=== PATIENT | female | born 1960 | race Caucasian/White ===

== ENCOUNTER 2022-12-06 15:10 | Observation (INO) ==
[2022-12-06] MEDS ORDERED: SODIUM CHLORIDE 0.9% 500 ML IV STA (15:15)
[2022-12-06] MEDS ORDERED: SODIUM CHLORIDE 0.9% 1000ML 1,000 ML IV ONE (16:03)
[2022-12-06] MEDS ORDERED: MoRPHine SULFATE 10 MG/ML CARP/VIAL IV STA ×2 (16:03→17:19)
[2022-12-06] MEDS ORDERED: ONDANSETRON INJ 2 MG/ML 2 ML VIAL IV STA (16:03)
[2022-12-06] MEDS ORDERED: KETOROLAC TROMETHAMINE 15 MG/ML VIAL IV STA (16:03)
[2022-12-06 16:07] LABS: Basophils # (auto) 0.02 K/uL (0-0.2); Basophils % (auto) 0.2 %; Eosinophils # (auto) 0.03 K/uL (0-0.50); Eosinophils % (auto) 0.2 %; Hematocrit (blood only) 38.8 % (37.0-47.0); Hemoglobin 13.5 g/dl (12.0-16.0); Immature Granulocytes # (auto) 0.04 K/uL (0.01-0.20); Immature Granulocytes % (auto) 0.3 %; Lymphocytes # (auto) 1.22 K/uL (1.2-3.4); Lymphocytes % (auto) 9.7 %; Mean Corpuscular Hemoglobin 31.4 pg (25.0-34.0); Mean Corpuscular Hgb Conc 34.8 g/dL (32.0-36.0); Mean Corpuscular Volume 90.2 fL (80.0-100.0); Mean Platelet Volume 10.2 fL (9.4-12.4); Monocytes # (auto) 1.01 K/uL (0.11-0.59); Neutrophils # (auto) 10.31 K/uL (1.40-6.50); Neutrophils % (auto) 81.6 %; Platelet Count 326 K/uL (130-400); RDW Coefficient of Variation 12.7 % (11.5-14.5); RDW Standard Deviation 42.1 fL (36.4-46.3); White Blood Count 12.63 K/ul (4.8-10.8)
--- NOTE | 2022-12-06 16:14 | Emergency Department Note ---
Impression & Plan Acute left flank pain, Renal colic, DORINA (acute kidney injury), Vomiting ED Provider Note NAME: ERIN MCCAIN AGE: 62 SEX: F : 1960 ARRIVES VIA: Walk-In INFORMANT: [Patient] ED PROVIDER(S): [Jg Mcleod MD] CHIEF COMPLAINT: Kidney stone HISTORY OF PRESENT ILLNESS: The patient is a 62-year-old female presents to the ER with left flank and left- sided abdominal pain. The patient states that she started with some symptoms over the weekend and then Friday, 4 days ago, thought she passed a kidney stone. Despite this stone passage, she had increased pain on the left side, nausea and vomiting. The patient noticed some blood in her urine. No fever. No cough or cold or congestion. The patient went to [facility] outpatient medical care and was referred to the ER. She is currently rating her left flank pain as a 10/10. PMHx/PSHx: See Below SOCIAL HISTORY: See Below. PHYSICAL EXAM: GENERAL: Patient is in mild distress from pain. HEENT: No acute trauma, normocephalic atraumatic, mucous membranes moist, no nasal congestion. NECK: No stridor, no adenopathy, no meningismus, trachea is midline. LUNGS: Clear to auscultation bilaterally, no wheeze, no rhonchi, breath sounds equal. HEART: Without murmurs gallops or rubs, regular rate and rhythm. ABDOMEN: Soft, moderately tender in the left lower quadrant, no peritonitis EXTREMITIES: No cyanosis or edema, full range of motion of all the joints without pain or difficulty, no signs for acute trauma. NEUROLOGIC: Oriented x 3, no acute motor or sensory deficits, no focal weakness. SKIN: No rash, no jaundice, no diaphoresis. Back: Left flank discomfort to percussion. DIFFERENTIAL DIAGNOSIS: Renal colic, hydronephrosis, UTI, pyelonephritis, diverticulitis, dehydration, ovarian cyst, among others. EMERGENCY DEPARTMENT COURSE/PROCEDURES: Prior/Outside records reviewed: [facility] outpatient notation. MEDICAL DECISION MAKING: There is a mild leukocytosis, this could be consistent with infection or the stress of her situation. There is a normal hemoglobin and platelet count. There was an elevation to the creatinine consistent with some mild acute kidney injury. No electrolyte abnormality in need of emergent correction. There were some liver enzyme elevations noted, the bilirubin was normal. Urinalysis shows findings of hematuria, no infection. COVID test returned negative. Abdominal and pelvis CT shows a distal left ureteral stone at the UV junction. Hydronephrosis was seen proximal. On exam, patient was quite uncomfortable. The patient received IV morphine 6 mg, a second 6 mg dose was required. He received IV saline for hydration, 1.5 L. She received IV Zofran, IV Toradol. The patient is having persistent discomfort. She has required quite a bit of medication to control her symptoms. I do think a hospital stay would be warranted especially with the acute kidney injury noted on her laboratory testing. I spoke with the patient and case management, the on-call hospitalist was consulted. DISPOSITION: Patient's presentation and findings warrant a hospital stay. Past Med/Surg History Medical History Nephrolithiasis Surgical History H/O hemorrhoidectomy H/O sinus surgery Family History Denies family history of Ovarian cancer Prostate cancer Myocardial infarction Breast cancer Colorectal cancer Social History Smoking Status: Never smoker Second Hand Exposure: No; Do You Dip or Chew Tobacco: No; Hx Alcohol Use: Yes Hx Substance Use: No Preferred Language: Greenlandic Communication Ability: Effective Fire Investigation Lieutenant Required: No Beliefs That Will Affect Care: None marital status: Single Current Living Situation: Spouse current occupational status: retired How many Children do You have: 0 Other Information That Helps Us Care for You: No Feels Safe at Home: Yes Safety Concerns: Feels Safe At This Time Diet: regular caffeine: Yes Dental Care, Regularly: Yes Assistive Devices: Glasses Allergies Allergies Allergy/AdvReac Type Severity Reaction Status Date / Time Fish Containing Products Allergy Unknown Verified 12/06/22 20:24 Penicillins Allergy Unknown Verified 12/06/22 20:24 Home Meds Home Medications Medication Instructions Recorded Confirmed acetaminophen 500 mg tablet 1,000 mg PO Q6H PRN Pain 12/06/22 12/06/22 (Tylenol Extra Strength) [id number]-[id number]-pecaocms 250 1 tab PO Q6H PRN Pain 12/06/22 12/06/22 mg-250 mg-65 mg tablet (Excedrin Migraine) fluticasone propionate 50 1 spray intranasal DAILY PRN 12/06/22 12/06/22 mcg/actuation nasal allergies spray,suspension oxycodone-acetaminophen 5 mg-325 1 tab PO Q8 PRN Pain 12/06/22 12/06/22 mg tablet Results & Data (ED) Vital Signs Vital Signs - 24 hr 12/06/22 15:12 12/06/22 16:05 12/06/22 16:45 Temperature 36.8 C Temperature Source Temporal Artery Scan Pulse Rate 93 H 77 Pulse Rate [Apical] 67 Pulse Rhythm [Apical] Pulse Strength [Apical] Respiratory Rate 20 19 Respiratory Effort / Characteristics Non-Labored Spontaneous Respiratory Depth Normal Respiratory Pattern Blood Pressure 133/86 Blood Pressure [Left Arm] 150/90 H Blood Pressure Mean 101 Blood Pressure Mean [Left Arm] 110 Blood Pressure Position [Left Arm] Pulse Oximetry 99 86 L Oxygen Delivery Method Room Air Room Air Oxygen Flow Rate Sepsis Recent Fever Within 48 Hours No Sepsis New/Unexplained Change in Mental Status No Sepsis Action Taken by Nursing No Action Required 12/06/22 16:46 12/06/22 18:00 Temperature Temperature Source Pulse Rate Pulse Rate [Apical] 82 Pulse Rhythm [Apical] Regular Pulse Strength [Apical] Normal Respiratory Rate 20 Respiratory Effort / Characteristics Non-Labored Respiratory Depth Normal Respiratory Pattern Regular Blood Pressure Blood Pressure [Left Arm] 127/84 Blood Pressure Mean Blood Pressure Mean [Left Arm] 98 Blood Pressure Position [Left Arm] Sitting Pulse Oximetry 97 99 Oxygen Delivery Method Nasal Cannula Room Air Oxygen Flow Rate 3 Sepsis Recent Fever Within 48 Hours Sepsis New/Unexplained Change in Mental Status Sepsis Action Taken by Shelter Medications Current Medication List: was personally reviewed by me Laboratory Data Attestation: I reviewed the patient's lab results. 12/06/22 15:35 12/06/22 15:35 Lab Results 12/06/22 12/06/22 12/06/22 Range/Units 15:35 15:35 17:50 WBC 12.63 H (4.8-10.8) K/ul RBC 4.30 (4.20-5.40) M/uL Hgb 13.5 (12.0-16.0) g/dl Hct 38.8 (37.0-47.0) % MCV 90.2 (80.0-100.0) fL MCH 31.4 (25.0-34.0) pg MCHC 34.8 (32.0-36.0) g/dL RDW Std Deviation 42.1 (36.4-46.3) fL RDW Coeff of Vince 12.7 (11.5-14.5) % Plt Count 326 (130-400) K/uL MPV 10.2 (9.4-12.4) fL Immature Gran % (Auto) 0.3 % Neut % (Auto) 81.6 % Lymph % (Auto) 9.7 % Sac % (Auto) 8.0 % Eos % (Auto) 0.2 % Baso % (Auto) 0.2 % Neut # (Auto) 10.31 H (1.40-6.50) K/uL Lymph # (Auto) 1.22 (1.2-3.4) K/uL Sac # (Auto) 1.01 H (0.11-0.59) K/uL Eos # (Auto) 0.03 (0-0.50) K/uL Baso # (Auto) 0.02 (0-0.2) K/uL Immature Gran # (Auto) 0.04 (0.01-0.20) K/uL Sodium 137 (136-145) mmol/L Potassium 3.7 (3.5-5.1) mmol/L Chloride 102 (98-107) mmol/L Carbon Dioxide 23 (21-32) mmol/L Anion Gap 12 H (3-11) BUN 23 (6-23) mg/dl Creatinine 1.42 H (0.6-1.2) mg/dl Est Cr Clr Drug Dosing 48.9 ml/min Est GFR ( Amer) 46.1 ml/min Est GFR (Non-Af Amer) 39.8 ml/min BUN/Creatinine Ratio 16.2 (10-20) Glucose 116 H (70-99(Fasting)) mg/dl Calcium 9.4 (8.6-10.3) mg/dl Total Bilirubin 0.8 (0.2-1.0) mg/dl AST 48 H (13-39) U/L ALT 71 H (7-52) U/L Alkaline Phosphatase 119 H (34-104) U/L Total Protein 7.6 (6.0-8.3) gm/dl Albumin 3.8 (3.4-5.0) gm/dl Globulin 3.8 (2.5-4.0) gm/dl Albumin/Globulin Ratio 1.0 (0.9-2) Urine Color Yellow Urine Appearance Clear (Clear) Urine pH 6.5 (4.5-7.5) Ur Specific [place] 1.027 (1.000-1.030) Urine Protein 1+ H (Negative) Urine Glucose (UA) Negative (Negative) Urine Ketones 2+ H (Negative) Urine Blood 2+ H (Negative) Urine Nitrite Negative (Negative) Urine Bilirubin Negative (Negative) Urine Urobilinogen Negative (Negative) Ur Leukocyte Esterase Negative (Negative) Urine WBC (Auto) 1-5 (0-5) /hpf Urine RBC (Auto) >30 H (0-4) /hpf U Hyaline Cast (Auto) 1-5 (0-5) /lpf U Epithel Cells (Auto) >30 H (0-5) /lpf Urine Bacteria (Auto) Negative (Negative) SARS-CoV-2, RNA, NAAT (NEGATIVE) 12/06/22 Range/Units 19:40 WBC (4.8-10.8) K/ul RBC (4.20-5.40) M/uL Hgb (12.0-16.0) g/dl Hct (37.0-47.0) % MCV (80.0-100.0) fL MCH (25.0-34.0) pg MCHC (32.0-36.0) g/dL RDW Std Deviation (36.4-46.3) fL RDW Coeff of Vince (11.5-14.5) % Plt Count (130-400) K/uL MPV (9.4-12.4) fL Immature Gran % (Auto) % Neut % (Auto) % Lymph % (Auto) % Sac % (Auto) % Eos % (Auto) % Baso % (Auto) % Neut # (Auto) (1.40-6.50) K/uL Lymph # (Auto) (1.2-3.4) K/uL Sac # (Auto) (0.11-0.59) K/uL Eos # (Auto) (0-0.50) K/uL Baso # (Auto) (0-0.2) K/uL Immature Gran # (Auto) (0.01-0.20) K/uL Sodium (136-145) mmol/L Potassium (3.5-5.1) mmol/L Chloride (98-107) mmol/L Carbon Dioxide (21-32) mmol/L Anion Gap (3-11) BUN (6-23) mg/dl Creatinine (0.6-1.2) mg/dl Est Cr Clr Drug Dosing ml/min Est GFR ( Amer) ml/min Est GFR (Non-Af Amer) ml/min BUN/Creatinine Ratio (10-20) Glucose (70-99(Fasting)) mg/dl Calcium (8.6-10.3) mg/dl Total Bilirubin (0.2-1.0) mg/dl AST (13-39) U/L ALT (7-52) U/L Alkaline Phosphatase (34-104) U/L Total Protein (6.0-8.3) gm/dl Albumin (3.4-5.0) gm/dl Globulin (2.5-4.0) gm/dl Albumin/Globulin Ratio (0.9-2) Urine Color Urine Appearance (Clear) Urine pH (4.5-7.5) Ur Specific [place] (1.000-1.030) Urine Protein (Negative) Urine Glucose (UA) (Negative) Urine Ketones (Negative) Urine Blood (Negative) Urine Nitrite (Negative) Urine Bilirubin (Negative) Urine Urobilinogen (Negative) Ur Leukocyte Esterase (Negative) Urine WBC (Auto) (0-5) /hpf Urine RBC (Auto) (0-4) /hpf U Hyaline Cast (Auto) (0-5) /lpf U Epithel Cells (Auto) (0-5) /lpf Urine Bacteria (Auto) (Negative) SARS-CoV-2, RNA, NAAT NEGATIVE (NEGATIVE) Administered Medications Sodium Chloride (Nss 1000ml) 1,000 mls @ 80 mls/hr IV .[id number] ORTEGA Stop: 01/05/23 21:11 Last Admin: 12/06/22 21:27 Dose: 80 mls/hr Documented By: RKM Famotidine 20 mg/ Syringe 5 mls @ 2.5 mls/min IV Q12 ORTEGA Stop: 01/05/23 21:11 Last Admin: 12/06/22 22:03 Dose: 2.5 mls/min Documented By: KEVIN Ceftriaxone Sodium 2,000 mg/ (Dextrose) 70 mls @ 100 mls/hr IV Q24H ORTEGA; Protocol Stop: 12/16/22 21:59 Last Infusion: 12/06/22 22:45 Dose: 0 mls/hr Documented By: Admin: 12/06/22 22:03 Dose: 100 mls/hr Documented By: LY Discontinued Medications Sodium Chloride (Nss) 500 mls @ 999 mls/hr IV .Q31M STA Stop: 12/06/22 15:45 Last Infusion: 12/06/22 16:18 Dose: 0 mls/hr Documented By: Admin: 12/06/22 15:37 Dose: 999 mls/hr Documented By: NA Sodium Chloride (Nss 1000ml) 1,000 mls @ 999 mls/hr IV .Q1H1M ONE Stop: 12/06/22 17:03 Last Infusion: 12/06/22 17:37 Dose: 0 mls/hr Documented By: Admin: 12/06/22 16:36 Dose: 999 mls/hr Documented By: ML Ketorolac Tromethamine (Ketorolac Tromethamine 15 Mg/Ml Vial) 15 mg IV NOW STA Stop: 12/06/22 16:04 Last Admin: 12/06/22 16:36 Dose: 15 mg Documented By: ML Morphine Sulfate (Morphine Sulfate 10 Mg/Ml Carp/Vial) 6 mg IV NOW STA Stop: 12/06/22 16:04 Last Admin: 12/06/22 16:36 Dose: 6 mg Documented By: ML Morphine Sulfate (Morphine Sulfate 10 Mg/Ml Carp/Vial) 6 mg IV NOW STA Stop: 12/06/22 17:20 Last Admin: 12/06/22 18:05 Dose: 6 mg Documented By: LUI Ondansetron HCl (Ondansetron Inj 2 Mg/Ml 2 Ml Vial) 4 mg IV NOW STA Stop: 12/06/22 16:04 Last Admin: 12/06/22 16:36 Dose: 4 mg Documented By: ML Tamsulosin HCl (Tamsulosin Hcl 0.4 Mg Cap) 0.4 mg PO NOW ONE Stop: 12/06/22 21:13 Last Admin: 12/06/22 21:34 Dose: 0.4 mg Documented By: [facility] Imaging Data Radiologist's Impression: Abdomen/Pelvis CT 12/06/22 16:03 CT SCAN OF THE ABDOMEN AND PELVIS WITHOUT IV CONTRAST CLINICAL HISTORY: Left flank pain. COMPARISON STUDY: No priors. TECHNIQUE: CT scan of the abdomen and pelvis is performed from the lung bases to the proximal femora. Images are reviewed in the axial, sagittal, and coronal planes. IV contrast was not administered for this examination. A dose lowering technique was utilized adhering to the principles of ALARA. The examination is degraded by motion artifact. CT DOSE: 1537.05 mGy.cm FINDINGS: Lung bases: The heart is normal in size and without pericardial effusion. There are scattered coronary artery calcifications. The lung bases are clear noting dependent atelectasis. There is a small hiatal hernia. Liver: The unenhanced liver is normal in size, contour, and attenuation. There is no intrahepatic biliary ductal dilatation. Gallbladder: Unremarkable. Spleen: Normal in size and attenuation. Pancreas: Unremarkable. Adrenal glands: Unremarkable. Kidneys: The unenhanced kidneys are normal in size. There is a 4 mm obstructing calculus at the left vesicoureteral junction seen on image #339. This causes at least moderate left hydroureteronephrosis. There is left-sided perinephric stranding and fluid. There are at least 2 additional punctate nonobstructing left renal calculi. There are at least 2 small nonobstructing right renal calculi. There is no right ureteral stone or right-sided hydronephrosis. Renal sinus cysts are seen bilaterally. There is no evidence of contour deforming renal mass lesion. Abdominal vasculature: The abdominal aorta is normal in course and caliber noting mild atherosclerotic calcification. Bowel: There is no bowel obstruction. A small amount of enteric contrast is suggested within the small bowel. The appendix is well-visualized and normal. Peritoneum: There is no intraperitoneal free air or abdominal ascites. There is a fat-containing umbilical hernia. A navel piercing is in place. Lymphadenopathy: None. Pelvic viscera: The bladder, uterus, and adnexa are normal as visualized. Skeletal structures: No lytic or blastic lesions are seen. IMPRESSION: 1. There is a 4 mm obstructing calculus at the left vesicoureteral junction. This causes at least moderate left hydroureteronephrosis. 2. Additional bilateral tiny nonobstructing renal calculi as above. ACT 112: Negative or not required by law. Electronically signed by: Jg Rowe M.D. 12/06/2022 4:49 PM Discharge Plan Visit Data Chief Complaint: Kidney Stone Stated Complaint: KIDNEY STONE ED Provider: Jg Mcleod Discharge Problem: Acute left flank pain, Renal colic, DORINA (acute kidney injury), Vomiting Patient Disposition: Admitted As Inpatient Condition: Fair Discharge Instructions Interventions: ED Discharge Assessment Last Done: 12/06/22 20:54
[2022-12-06 16:20] LABS: Albumin Level 3.8 gm/dl (3.4-5.0); BUN Creatinine Ratio 16.2 (10-20); Bilirubin,Total 0.8 mg/dl (0.2-1.0); Calcium 9.4 mg/dl (8.6-10.3); Creatinine Clr Calc Pharmacy 48.9 ml/min; Est GFR (African American) 46.1 ml/min; Est GFR (Non-African American) 39.8 ml/min; Globulin 3.8 gm/dl (2.5-4.0); Potassium 3.7 mmol/L (3.5-5.1); Total Protein 7.6 gm/dl (6.0-8.3)
--- NOTE | 2022-12-06 16:51 | CT Scan Report ---
CT SCAN OF THE ABDOMEN AND PELVIS WITHOUT IV CONTRAST CLINICAL HISTORY: Left flank pain. COMPARISON STUDY: No priors. TECHNIQUE: CT scan of the abdomen and pelvis is performed from the lung bases to the proximal femora. Images are reviewed in the axial, sagittal, and coronal planes. IV contrast was not administered for this examination. A dose lowering technique was utilized adhering to the principles of ALARA. The ex amination is degraded by motion artifact. CT DOSE: 1537.05 mGy.cm FINDINGS: Lung bases: The heart is normal in size and without pericardial effusion. There are scattered coronar y artery calcifications. The lung bases are clear noting dependent atelectasis. There is a small hiat al hernia. Liver: The unenhanced liver is normal in size, contour, and attenuation. There is no intrahepatic guerrero iary ductal dilatation. Gallbladder: Unremarkable. Spleen: Normal in size and attenuation. Pancreas: Unremarkable. Adrenal glands: Unremarkable. Kidneys: The unenhanced kidneys are normal in size. There is a 4 mm obstructing calculus at the left vesicoureteral junction seen on image #339. This causes at least moderate left hydroureteronephrosis. There is left-sided perinephric stranding and fluid. There are at least 2 additional punctate nonobs tructing left renal calculi. There are at least 2 small nonobstructing right renal calculi. There is no right ureteral stone or right-sided hydronephrosis. Renal sinus cysts are seen bilaterally. There is no evidence of contour deforming renal mass lesion. Abdominal vasculature: The abdominal aorta is normal in course and caliber noting mild atheroscleroti c calcification. Bowel: There is no bowel obstruction. A small amount of enteric contrast is suggested within the smal l bowel. The appendix is well-visualized and normal. Peritoneum: There is no intraperitoneal free air or abdominal ascites. There is a fat-containing umbi lical hernia. A navel piercing is in place. Lymphadenopathy: None. Pelvic viscera: The bladder, uterus, and adnexa are normal as visualized. Skeletal structures: No lytic or blastic lesions are seen. IMPRESSION: 1. There is a 4 mm obstructing calculus at the left vesicoureteral junction. This causes at least mod erate left hydroureteronephrosis. 2. Additional bilateral tiny nonobstructing renal calculi as above. ACT 112: Negative or not required by law. Electronically signed by: Jg Rowe M.D. 12/06/2022 4:49 PM
[2022-12-06 18:16] LABS: Appearance Urine Clear (Clear); Bacteria Urine Automated Negative (Negative); Bilirubin Urine Negative (Negative); Blood Urine 2+ (Negative); Color Urine Yellow; Epithelial Cell Urine Auto >30 /lpf (0-5); Glucose Urine UA Negative (Negative); Ketones Urine 2+ (Negative); Leukocyte Esterase Urine Negative (Negative); Nitrite Urine Negative (Negative); Protein Urine 1+ (Negative); RBC Urine Automated >30 /hpf (0-4); Specific Gravity Urine 1.027 (1.000-1.030); Urobilinogen Urine Negative (Negative); pH Urine 6.5 (4.5-7.5)
--- NOTE | 2022-12-06 19:56 | History & Physical Report ---
Date of Service December 06, 2022 Assessment & Plan (1) Calculus of ureterovesical junction (UVJ): (2) Acute left flank pain: (3) Hydronephrosis of left kidney: (4) DORINA (acute kidney injury): (5) Transaminitis: Plan 4 mm obstructing left UVJ stone/moderate left hydroureteronephrosis- NPO Follow urine culture sensitivity Ceftriaxone 2 g IV daily Acetaminophen 1 g IV every 8 hours as needed mild pain or fever Dilaudid 0.25 mg IV every 3 hours as needed for moderate pain Dilaudid 0.5 mg IV every 3 hours as needed for severe pain Zofran 4 mg IV every 6 hours as needed Famotidine 20 mg IV every 12 hours consult urology for Renal insufficiency, presumed Acute kidney injury- Creatinine 1.42, with no baseline for comparison status post 1.5 L normal saline in ED Continue NSS at 80 mils per hour repeat laboratories in a.m. transaminitis- AST 48, ALT 71, with no baseline for comparison recheck laboratories in a.m. History of Present Illness Chief Complaint: The patient presents to the emergency department with left sided flank and abdominal pain that began about 5 days ago, which she initially thought was musculoskeletal pain. 4 days ago, she then developed worsening pain accompanied by nausea and vomiting, and then passed a kidney stone, which she took to her physician's office. She presents today with similar pain, nausea vomiting. Significant abnormal laboratories: WBC 12.63, creatinine 1.42, glucose 116, AST 48, ALT 71. CT scan of abdomen pelvis shows a 4 mm obstructing left UVJ stone with moderate left hydroureteronephrosis. This Primary Care Provider: Steve Reddy MD Allergies Allergy/AdvReac Type Severity Reaction Status Date / Time Fish Containing Products Allergy Unknown Verified 12/06/22 20:24 Penicillins Allergy Unknown Verified 12/06/22 20:24 Home Medications Medication Instructions Recorded Confirmed Type acetaminophen 500 mg tablet 1,000 mg PO Q6H PRN Pain 12/06/22 12/06/22 History (Tylenol Extra Strength) bnystyf-fmsfvcqxszfkk-bkfnpnvl 250 1 tab PO Q6H PRN Pain 12/06/22 12/06/22 History mg-250 mg-65 mg tablet (Excedrin Migraine) fluticasone propionate 50 1 spray intranasal DAILY PRN 12/06/22 12/06/22 History mcg/actuation nasal allergies spray,suspension oxycodone-acetaminophen 5 mg-325 1 tab PO Q8 PRN Pain 12/06/22 12/06/22 History mg tablet Past Med/Surg History Medical History Nephrolithiasis Surgical History H/O hemorrhoidectomy H/O sinus surgery Family History Denies family history of Ovarian cancer Prostate cancer Myocardial infarction Breast cancer Colorectal cancer Social History Smoking Status: Never smoker Second Hand Exposure: No; Do You Dip or Chew Tobacco: No; Hx Alcohol Use: Yes Hx Substance Use: No Preferred Language: Georgian Communication Ability: Effective 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 Beliefs That Will Affect Care: None marital status: Single Current Living Situation: Spouse current occupational status: retired How many Children do You have: 0 Other Information That Helps Us Care for You: No Feels Safe at Home: Yes Safety Concerns: Feels Safe At This Time Diet: regular caffeine: Yes Dental Care, Regularly: Yes Assistive Devices: Glasses Review of Systems Review of Systems: the patient denies chest pain, palpitations, shortness of breath, dyspnea on exertion, cough, lower extremity swelling, sore throat, fevers, chills, sweats, diarrhea , constipation, blood in stool, lightheadedness, dizziness, headache, memory loss, loss of consciousness, rash, imbalance, focal or generalized weakness, numbness or tingling in arms or legs, generalized arthralgias or myalgias, neck pain, or night sweats. The review of systems is otherwise negative other than for that already noted above, and at least 10 systems have been reviewed. Physical Exam Physical Exam: The patient is awake, alert and oriented 3, well developed and well nourished, normocephalic and atraumatic, lying in bed and in no acute distress. HEENT--PERRL, EOMI, mucous membranes and oropharynx dry. Neck--supple. No JVD. No bruits. Thyroid normal, trachea midline, no adenopathy. Heart--normal S1 and S2. No murmurs, rubs or gallops. Lungs--clear bilaterally, no respiratory distress, no accessory muscle use. Abdomen--normal bowel sounds and soft. Nontender. Nondistended, no hernias or masses, no organomegaly. Extremities--no cyanosis or clubbing. No edema. There are good distal pulses b/l. Dermatologic--normal skin turgor, normal color, no abnormal lymph nodes, no rash. Neurologic--cranial nerves II through XII grossly intact. Rheumatologic--normal range of motion. Psychiatric--normal affect. Results & Data Results & Data Vital Signs (Past 12 Hours) Vital Signs Temp Pulse Pulse Resp BP BP Pulse Ox 12/06/22 18:00 82 20 127/84 99 12/06/22 16:46 97 12/06/22 16:45 67 19 150/90 H 86 L 12/06/22 16:05 77 12/06/22 15:12 36.8 C 93 H 20 133/86 99 O2 Del Method O2 Flow Rate 12/06/22 18:00 Room Air 12/06/22 16:46 Nasal Cannula 3 12/06/22 16:45 Room Air 12/06/22 16:05 12/06/22 15:12 Room Air Laboratory Results Laboratory Results WBC 12.63 K/ul (4.8-10.8) H 12/06/22 15:35 RBC 4.30 M/uL (4.20-5.40) 12/06/22 15:35 Hgb 13.5 g/dl (12.0-16.0) 12/06/22 15:35 Hct 38.8 % (37.0-47.0) 12/06/22 15:35 MCV 90.2 fL (80.0-100.0) 12/06/22 15:35 MCH 31.4 pg (25.0-34.0) 12/06/22 15:35 MCHC 34.8 g/dL (32.0-36.0) 12/06/22 15:35 RDW Std Deviation 42.1 fL (36.4-46.3) 12/06/22 15:35 RDW Coeff of Vince 12.7 % (11.5-14.5) 12/06/22 15:35 Plt Count 326 K/uL (130-400) 12/06/22 15:35 MPV 10.2 fL (9.4-12.4) 12/06/22 15:35 Immature Gran % (Auto) 0.3 % 12/06/22 15:35 Neut % (Auto) 81.6 % 12/06/22 15:35 Lymph % (Auto) 9.7 % 12/06/22 15:35 [place] % (Auto) 8.0 % 12/06/22 15:35 Eos % (Auto) 0.2 % 12/06/22 15:35 Baso % (Auto) 0.2 % 12/06/22 15:35 Neut # (Auto) 10.31 K/uL (1.40-6.50) H 12/06/22 15:35 Lymph # (Auto) 1.22 K/uL (1.2-3.4) 12/06/22 15:35 [place] # (Auto) 1.01 K/uL (0.11-0.59) H 12/06/22 15:35 Eos # (Auto) 0.03 K/uL (0-0.50) 12/06/22 15:35 Baso # (Auto) 0.02 K/uL (0-0.2) 12/06/22 15:35 Immature Gran # (Auto) 0.04 K/uL (0.01-0.20) 12/06/22 15:35 Sodium 137 mmol/L (136-145) 12/06/22 15:35 Potassium 3.7 mmol/L (3.5-5.1) 12/06/22 15:35 Chloride 102 mmol/L (98-107) 12/06/22 15:35 Carbon Dioxide 23 mmol/L (21-32) 12/06/22 15:35 Anion Gap 12 (3-11) H 12/06/22 15:35 BUN 23 mg/dl (6-23) 12/06/22 15:35 Creatinine 1.42 mg/dl (0.6-1.2) H 12/06/22 15:35 Est Cr Clr Drug Dosing 48.9 ml/min 12/06/22 15:35 Est GFR ( Amer) 46.1 ml/min 12/06/22 15:35 Est GFR (Non-Af Amer) 39.8 ml/min 12/06/22 15:35 BUN/Creatinine Ratio 16.2 (10-20) 12/06/22 15:35 Glucose 116 mg/dl (70-99(Fasting)) H 12/06/22 15:35 Calcium 9.4 mg/dl (8.6-10.3) 12/06/22 15:35 Total Bilirubin 0.8 mg/dl (0.2-1.0) 12/06/22 15:35 AST 48 U/L (13-39) H 12/06/22 15:35 ALT 71 U/L (7-52) H 12/06/22 15:35 Alkaline Phosphatase 119 U/L (34-104) H 12/06/22 15:35 Total Protein 7.6 gm/dl (6.0-8.3) 12/06/22 15:35 Albumin 3.8 gm/dl (3.4-5.0) 12/06/22 15:35 Globulin 3.8 gm/dl (2.5-4.0) 12/06/22 15:35 Albumin/Globulin Ratio 1.0 (0.9-2) 12/06/22 15:35 Urine Color Yellow 12/06/22 17:50 Urine Appearance Clear (Clear) 12/06/22 17:50 Urine pH 6.5 (4.5-7.5) 12/06/22 17:50 Ur Specific [place] 1.027 (1.000-1.030) 12/06/22 17:50 Urine Protein 1+ (Negative) H 12/06/22 17:50 Urine Glucose (UA) Negative (Negative) 12/06/22 17:50 Urine Ketones 2+ (Negative) H 12/06/22 17:50 Urine Blood 2+ (Negative) H 12/06/22 17:50 Urine Nitrite Negative (Negative) 12/06/22 17:50 Urine Bilirubin Negative (Negative) 12/06/22 17:50 Urine Urobilinogen Negative (Negative) 12/06/22 17:50 Ur Leukocyte Esterase Negative (Negative) 12/06/22 17:50 Urine WBC (Auto) 1-5 /hpf (0-5) 12/06/22 17:50 Urine RBC (Auto) >30 /hpf (0-4) H 07/07/23 17:50 U Hyaline Cast (Auto) 1-5 /lpf (0-5) 12/06/22 17:50 U Epithel Cells (Auto) >30 /lpf (0-5) H 12/06/22 17:50 Urine Bacteria (Auto) Negative (Negative) 12/06/22 17:50 SARS-CoV-2, RNA, NAAT NEGATIVE (NEGATIVE) 12/06/22 19:40 Impressions Abdomen/Pelvis CT 12/06/22 16:03 CT SCAN OF THE ABDOMEN AND PELVIS WITHOUT IV CONTRAST CLINICAL HISTORY: Left flank pain. COMPARISON STUDY: No priors. TECHNIQUE: CT scan of the abdomen and pelvis is performed from the lung bases to the proximal femora. Images are reviewed in the axial, sagittal, and coronal planes. IV contrast was not administered for this examination. A dose lowering technique was utilized adhering to the principles of ALARA. The examination is degraded by motion artifact. CT DOSE: 1537.05 mGy.cm FINDINGS: Lung bases: The heart is normal in size and without pericardial effusion. There are scattered coronary artery calcifications. The lung bases are clear noting dependent atelectasis. There is a small hiatal hernia. Liver: The unenhanced liver is normal in size, contour, and attenuation. There is no intrahepatic biliary ductal dilatation. Gallbladder: Unremarkable. Spleen: Normal in size and attenuation. Pancreas: Unremarkable. Adrenal glands: Unremarkable. Kidneys: The unenhanced kidneys are normal in size. There is a 4 mm obstructing calculus at the left vesicoureteral junction seen on image #339. This causes at least moderate left hydroureteronephrosis. There is left-sided perinephric stranding and fluid. There are at least 2 additional punctate nonobstructing left renal calculi. There are at least 2 small nonobstructing right renal calculi. There is no right ureteral stone or right-sided hydronephrosis. Renal sinus cysts are seen bilaterally. There is no evidence of contour deforming renal mass lesion. Abdominal vasculature: The abdominal aorta is normal in course and caliber noting mild atherosclerotic calcification. Bowel: There is no bowel obstruction. A small amount of enteric contrast is suggested within the small bowel. The appendix is well-visualized and normal. Peritoneum: There is no intraperitoneal free air or abdominal ascites. There is a fat-containing umbilical hernia. A navel piercing is in place. Lymphadenopathy: None. Pelvic viscera: The bladder, uterus, and adnexa are normal as visualized. Skeletal structures: No lytic or blastic lesions are seen. IMPRESSION: 1. There is a 4 mm obstructing calculus at the left vesicoureteral junction. This causes at least moderate left hydroureteronephrosis. 2. Additional bilateral tiny nonobstructing renal calculi as above. ACT 112: Negative or not required by law. Electronically signed by: Jg Rowe M.D. 12/06/2022 4:49 PM Code Status & VTE Plan Code Status Full code VTE Prophylaxis Plan VTE Prophylaxis will be ordered: Yes PG Care Time/CCT Total # of Minutes Spent Total Time Spent with Patient: Total time spent is greater than 50% in coordination of care (as documented) at patient's floor/unit and/or counseling patient: Coding Level of Care Code 60911 INT INP/OBS CARE 3/75MIN Diagnoses Calculus of ureterovesical junction (UVJ) N20.1 Acute left flank pain R10.9 Hydronephrosis of left kidney N13.30 DORINA (acute kidney injury) N17.9 Transaminitis R74.01
[2022-12-06] MEDS ORDERED: LORATADINE 10 MG TAB PO PRN (19:57)
--- NOTE | 2022-12-06 20:47 | Urology Consultation ---
Date of Consultation December 06, 2022 Assessment & Plan (1) Nephrolithiasis: The patient is being admitted on the hospitalist service. From a urologic perspective we recommend proceeding in the following manner: Provide analgesics Provide antiemetics Provide IV fluid for hydration Initiate Flomax for expulsive therapy Follow serial labs At the present time the patient is afebrile and her urinalysis not indicative of infection. The patient is noted to be normotensive without tachycardia. She did have a slight elevation in her creatinine however and I do not have any labs to compare this to. At the present time given the patient's stability I not feel an urgent urologic procedure is warranted and a trial of conservative passage is reasonable. We will make the patient n.p.o. after midnight in the event that she does require cystoscopy tomorrow. Additional recommendations be forthcoming based on her clinical course as unfolds Supervising Physician Co-Signing Physician Notes Agree with abovepatient seen and examined Although she passed a small fragment yesterday she still seems to have several small fragments were small stone at the UVJnearly protruding into the bladder She currently feels well Minimal discomfort overnight Biggest concern is that she would like to eat We have discussed that she still has a stone and there is the possibility that she will require intervention although she has a high probability of spontaneous stone passage Continue hydration for now Advance diet N.p.o. at midnight in the event that she has severe pain again later todaywe could consider intervention tomorrow Creatinine currently 1.5, however it appears that she may have received a dose of Toradol in the emergency room in the setting of underlying dehydration and some mild AKIToradol has now been discontinued History of Present Illness Reason for Consultation: Nephrolithiasis History of Present Illness This is a 62-year-old female who presented to the emergency department at [facility] secondary to severe left flank pain. Patient notes that she began having left flank pain that radiated to her abdomen approximately 5 days ago. She notes approximate 48 hours after the beginning of her pain she passed a kidney stone. She said that she was feeling better however the pain returned at a severe level today. She said that the pain again is located in the left flank radiating to her abdomen. She denies any fevers but has had associated nausea and vomiting. She denies any dysuria or hematuria. Patient notes that she has had kidney stones in the past but has always passed them successfully on her own. Since arrival to the emergency department the patient has had labs and imaging which independent reviewed. CT scan of the abdomen pelvis showed the patient had a 4 mm obstructing kidney stone at the left ureteral vesicle junction. This was resulting in moderate hydronephrosis. She had additional bilateral nonobstructing renal calculi noted as well. Labs include a CBC her white blood cell count was elevated 12.6. Hemoglobin, hematocrit, and platelet count were normal. Chemistry profile showed sodium, potassium, and BUN were all normal. Creatinine had a slight elevation at 1.42. Urinalysis was not indicative of infection. A COVID test was negative. At the time of my interview the patient said her pain was well controlled and she was in no distress. Allergies Allergy/AdvReac Type Severity Reaction Status Date / Time Fish Containing Products Allergy Unknown Verified 12/06/22 20:24 Penicillins Allergy Unknown Verified 12/06/22 20:24 Home Medications Medication Instructions Recorded Confirmed Type acetaminophen 500 mg tablet 1,000 mg PO Q6H PRN Pain 12/06/22 12/06/22 History (Tylenol Extra Strength) puafdnt-lzxzibyhvuhhm-tlrbgekm 250 1 tab PO Q6H PRN Pain 12/06/22 12/06/22 History mg-250 mg-65 mg tablet (Excedrin Migraine) fluticasone propionate 50 1 spray intranasal DAILY PRN 12/06/22 12/06/22 History mcg/actuation nasal allergies spray,suspension oxycodone-acetaminophen 5 mg-325 1 tab PO Q8 PRN Pain 12/06/22 12/06/22 History mg tablet Patient History Medical History Nephrolithiasis Surgical History H/O hemorrhoidectomy H/O sinus surgery Family History Denies family history of Ovarian cancer Prostate cancer Myocardial infarction Breast cancer Colorectal cancer Social History Smoking Status: Never smoker Second Hand Exposure: No; Do You Dip or Chew Tobacco: No; Hx Alcohol Use: Yes Hx Substance Use: No Preferred Language: Portuguese Communication Ability: Effective Perfumer Required: No Beliefs That Will Affect Care: None marital status: Single Current Living Situation: Spouse current occupational status: retired How many Children do You have: 0 Other Information That Helps Us Care for You: No Feels Safe at Home: Yes Safety Concerns: Feels Safe At This Time Diet: regular caffeine: Yes Dental Care, Regularly: Yes Assistive Devices: Glasses Review of Systems Constitutional: no fever Ear, Nose, Mouth, Throat: no ear pain Respiratory: no cough and no dyspnea Cardiovascular: no chest pain Gastrointestinal: + abdominal pain (Radiating from left flank) Genitourinary: as per Subjective / HPI Musculoskeletal: + back pain (Left flank) Integumentary: no rash Neurologic: no localized weakness Physical Exam Constitutional: WD/WN, vitals as above Eyes: no conjunctival abnormality ENMT: Ears: no hearing impairment and no external ear abnormality Mouth: no oropharynx abnormality Neck: trachea midline Respiratory: normal respiratory effort; no respiratory distress and no labored breathing Cardiovascular: Rate/Rhythm: regular rate and regular rhythm Vessels: dorsalis pedis pulses present and radial pulses present Gastrointestinal (Abdomen): Abdomen soft, nonrigid, and nondistended. There is no pain with palpation at the time of my exam Musculoskeletal: No calf tenderness Skin: no rashes Neurologic: moves all extremities Psychiatric: A+Ox3, euthymic affect Genitourinary: No CVA tenderness noted bilaterally at the time of my exam. Results & Data Vital Signs (Past 12 Hours) Vital Signs Temp Pulse Pulse Resp BP BP Pulse Ox 12/06/22 20:09 72 12/06/22 20:00 65 17 135/81 97 12/06/22 18:00 82 20 127/84 99 12/06/22 16:46 97 12/06/22 16:45 67 19 150/90 H 86 L 12/06/22 16:05 77 12/06/22 15:12 36.8 C 93 H 20 133/86 99 O2 Del Method O2 Flow Rate 12/06/22 20:09 12/06/22 20:00 Room Air 12/06/22 18:00 Room Air 12/06/22 16:46 Nasal Cannula 3 12/06/22 16:45 Room Air 12/06/22 16:05 12/06/22 15:12 Room Air PG Care Time/CCT Total # of Minutes Spent Total Time Spent with Patient: Total time spent is greater than 50% in coordination of care (as documented) at patient's floor/unit and/or counseling patient: Coding Level of Care Code 58496 IN/OBS CONSULT LVL 5,80M Diagnoses Nephrolithiasis N20.0
[2022-12-06] MEDS ORDERED: HYDROmorphone INJ 0.5 MG/0.5 ML SYR IV PRN ×2 (21:12)
[2022-12-06] MEDS ORDERED: ACETAMINOPHEN 1,000 MG/100 ML VIAL IV PRN (21:12)
[2022-12-06] MEDS ORDERED: TAMSULOSIN HCL 0.4 MG CAP PO ONE (21:12)
[2022-12-06] MEDS ORDERED: ONDANSETRON INJ 2 MG/ML 2 ML VIAL IV PRN (21:12)
[2022-12-06] MEDS: SODIUM CHLORIDE 0.9% 1000ML 1,000 ML IV SCH (21:27)
[2022-12-06] MEDS ORDERED: cefTRIAXone SODIUM 2,000 MG in DEXTROSE 5% 50 ML IV SCH (22:00)
[2022-12-06] MEDS: FAMOTIDINE 20 MG in SYRINGE 3 ML IV SCH (22:03)
[2022-12-07 08:09] LABS: Basophils # (auto) 0.02 K/uL (0-0.2); Basophils % (auto) 0.2 %; Eosinophils # (auto) 0.13 K/uL (0-0.50); Eosinophils % (auto) 1.4 %; Hemoglobin 10.8 g/dl (12.0-16.0); Immature Granulocytes # (auto) 0.03 K/uL (0.01-0.20); Immature Granulocytes % (auto) 0.3 %; Lymphocytes # (auto) 1.42 K/uL (1.2-3.4); Lymphocytes % (auto) 15.5 %; Mean Corpuscular Hemoglobin 30.8 pg (25.0-34.0); Mean Corpuscular Hgb Conc 32.7 g/dL (32.0-36.0); Mean Platelet Volume 9.9 fL (9.4-12.4); Monocytes % (auto) 9.8 %; Neutrophils # (auto) 6.68 K/uL (1.40-6.50); Neutrophils % (auto) 72.8 %; Platelet Count 245 K/uL (130-400); RDW Standard Deviation 44.7 fL (36.4-46.3); Red Blood Count 3.51 M/uL (4.20-5.40); White Blood Count 9.18 K/ul (4.8-10.8)
[2022-12-07 08:31] LABS: Albumin Level 2.9 gm/dl (3.4-5.0); BUN Creatinine Ratio 15.1 (10-20); Bilirubin,Total 0.4 mg/dl (0.2-1.0); Calcium 8.1 mg/dl (8.6-10.3); Creatinine Clr Calc Pharmacy 45.7 ml/min; Est GFR (African American) 42.4 ml/min; Est GFR (Non-African American) 36.6 ml/min; Magnesium 2.1 mg/dl (1.7-2.4); Potassium 3.7 mmol/L (3.5-5.1); Total Protein 5.9 gm/dl (6.0-8.3)
[2022-12-07] MEDS: FAMOTIDINE 20 MG in SYRINGE 3 ML IV SCH (09:35)
[2022-12-07] MEDS: SODIUM CHLORIDE 0.9% 1000ML 1,000 ML IV SCH (10:58)
--- NOTE | 2022-12-07 15:54 | Discharge Summary ---
Discharge Summary Date of Service December 07, 2022 Notes For Next Care Provider Medication Changes From Visit oxycodone/APAP 5mg po q8h prn pain Principal Dx & Hospital Course #1 = Principal Diagnosis (1) Calculus of ureterovesical junction (UVJ): left 4 mm with hydronephrosis passed spontaneously with IVFs while here sent stone for analaysis has bilateral renal stones nonobstructing f/u with urology as outpt does not have UTI, no further antibiotics needed (2) Acute left flank pain: resolved with passage of stone pt requests small amount of oxycodone to have on hand in case another stone passes at home (3) Hydronephrosis of left kidney: resolved (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 liver normal on CT Discharge Exam Constitutional WD/WN, vitals as above Respiratory normal respiratory effort, lungs clear to auscultation Cardiovascular RRR, no murmur, no edema Gastrointestinal (Abdomen) normal bowel sounds, soft, nontender, no hepatosplenomegaly Psychiatric A+Ox3, euthymic affect Updated Medication List Medication Instructions Recorded Confirmed Type acetaminophen 500 mg tablet 1,000 mg PO Q6H PRN Pain 12/06/22 12/06/22 History (Tylenol Extra Strength) scnytpf-dnhdlfcyzcbdt-evayssuc 250 1 tab PO Q6H PRN Pain 12/06/22 12/06/22 History mg-250 mg-65 mg tablet (Excedrin Migraine) fluticasone propionate 50 1 spray intranasal DAILY PRN 12/06/22 12/06/22 History mcg/actuation nasal allergies spray,suspension oxycodone-acetaminophen 5 mg-325 1 tab PO Q8 PRN Pain #10 tabs 12/07/22 Rx mg tablet Hospital Stay Data Consultations 12/06/22 18:54 ED Decision to Admit Stat 12/06/22 20:03 Consult Urology Routine 12/06/22 20:38 ED Decision to Admit Stat Diagnostic Imagining Performed 12/06/22 16:03 CT Abd and Pelvis [CT abd pelvis wo con] Stat Pending Results Patient Have Any Pending Studies at Discharge: Yes (kidney stone analysis) Discharge Instructions Given to Patient (Per Discharging Provider) You passed a kidney stone while you were here. Please drink plenty of water and have your PCP check your kidney function with blood work within 1 week to ensure it normalizes now that you passed the kidney stone. Follow up with the Urologist within 2-3 weeks for your history of kidney stones. Total Time Total Time Spent Total Time Spent (In Minutes): 35 min Total Time Includes: Examination of the Patient, Discharge Planning, Medication Reconciliation and Communication With Other Providers (Urology) Coding Level of Care Code 94091 INP/OBS DISCH >30 MIN Diagnoses Calculus of ureterovesical junction (UVJ) N20.1 Acute left flank pain R10.9 Hydronephrosis of left kidney N13.30 DORINA (acute kidney injury) N17.9 Transaminitis R74.01
[2022-12-14 16:53] LABS: Component 2 DNR; Source KIDNEY
== END 2022-12-07 17:11 | disposition home or self-care (01) | DRG 694 ==
LOC: ED 15:10 → SUATTDRO 19:56 → INTOOBSV 19:56 → 3N 19:56